=== PATIENT | female | born 1985 | race Two or more races ===

== ENCOUNTER 2023-01-01 20:54 | Inpatient (IN) | payer OTHER ==
[~2023-01-01] VITALS: Ht 157.5 cm; Wt 86.2 kg
[2023-01-01 21:59] LABS: HEMATOCRIT 35.9 % (36.0-45.00); HEMOGLOBIN 12.5 g/dL (12.0-15.00); MEAN CELL VOLUME 87.9 fL (80.00-100.00); MEAN CORPUSCULAR HEMOGLOBIN 30.5 pg (27.00-32.0); MEAN CORPUSCULAR HGB CONC 34.7 g/dl (32.0-36.0); PLATELET COUNT 244 K/uL (150-450); RED BLOOD COUNT 4.08 M/uL (4.00-6.00); RED CELL DISTRIBUTION WIDTH 14.8 % (11.5-14.5)
[2023-01-01 22:01] LABS: PH,URINE 6.5 (5.0-8.0); URINE APPEARANCE Clear; URINE BILIRRUBIN Negative (NEGATIVE); URINE BLOOD Negative; URINE COLOR Yellow; URINE GLUCOSE Negative (NEGATIVE); URINE LEUKOCYTE Trace; URINE NITRATE Negative; URINE PROTEIN Trace (NEGATIVE)
[2023-01-01 22:05] LABS: URINE BACTERIA 139.8 uL (0.0-1933); URINE EPITHELIAL CELLS 8.9 uL (0.0-38.8)
[2023-01-01] MEDS ORDERED: PRENATAL CAPLE1 EAC1 PO (22:14)
[2023-01-01] MEDS ORDERED: ADULT LOW DOSE81 M1 PO (22:14)
[2023-01-01 22:15] LABS: INR < 0.93; PARTIAL THROMBOPLASTIN TIME 26.7 SECONDS (22.0-34.0); PROTHROMBIN TIME 9.3 SECONDS (9.0-11.5)
[2023-01-01 22:19] LABS: ALBUMIN 2.8 gm/dL (3.4-5.0); BILIRUBIN TOTAL 0.23 mg/dL (0.3-1.2); CALCIUM 9.6 mg/dL (8.5-10.1); CREATININE SERUM 0.65 mg/dL (0.55-1.02); GFR 101.47; GLOBULINA 3.4 G/DL (2.4-3.5); POTASSIUM 4.04 mEq/L (3.5-5.1); TOTAL PROTEIN 6.2 gm/dL (6.4-8.2)
[2023-01-02 22:31] LABS: URINE PROT QUANT 24HR 5.8 MG/DL
[2023-01-02 22:33] LABS: URINE PROT QUANT 24 HR 159.5 MG/24HR (42-225)
== END 2023-01-03 11:43 | disposition home or self-care (01) | DRG 833 ==
LOC: OBS/DEL 20:54 → LDR 01-02 21:42
PROVIDERS: ADMIT Specialist; ATTEND Specialist
PROC: 4A1HXCZ Monitoring of Products of Conception, Cardiac Rate, External Approach (ICD-10-PCS; principal; 2023-01-02)
DX: O24.410 Gestational diabetes mellitus in pregnancy, diet controlled (principal); O13.3 Gestational [pregnancy-induced] hypertension without significant proteinuria, third trimester; Z3A.37 37 weeks gestation of pregnancy; Z20.822 Contact with and (suspected) exposure to COVID-19

== ENCOUNTER 2023-01-06 07:45 | Inpatient (IN) | payer OTHER ==
[~2023-01-06] VITALS: Ht 157.5 cm; Wt 85.7 kg
[~2023-01-06 07:45] MED LIST: ADULT LOW DOSE81 M1 PO; PRENATAL CAPLE1 EAC1 PO
[2023-01-06 08:18] LABS: HEMOGLOBIN 12.4 g/dL (12.0-15.00); MEAN CELL VOLUME 89.8 fL (80.00-100.00); MEAN CORPUSCULAR HEMOGLOBIN 29.2 pg (27.00-32.0); MEAN CORPUSCULAR HGB CONC 32.5 g/dl (32.0-36.0); PLATELET COUNT 235 K/uL (150-450); RED BLOOD COUNT 4.23 M/uL (4.00-6.00); RED CELL DISTRIBUTION WIDTH 14.2 % (11.5-14.5)
[2023-01-06 08:21] LABS: URINE APPEARANCE Clear; URINE BILIRRUBIN Negative (NEGATIVE); URINE BLOOD Negative; URINE COLOR Yellow; URINE GLUCOSE Negative (NEGATIVE); URINE LEUKOCYTE Moderate; URINE NITRATE Negative; URINE PROTEIN Negative (NEGATIVE); URINE UROBILINOGEN 0.2 E.U./dl
[2023-01-06 08:39] LABS: INR < 0.93; PARTIAL THROMBOPLASTIN TIME 28.4 SECONDS (22.0-34.0); PROTHROMBIN TIME 9.1 SECONDS (9.0-11.5)
[2023-01-06 08:40] LABS: URINE RBC 0.5 uL (0.0-20.8)
[2023-01-06 08:47] LABS: ALBUMIN 2.8 gm/dL (3.4-5.0); BILIRUBIN TOTAL 0.25 mg/dL (0.3-1.2); CALCIUM 9.1 mg/dL (8.5-10.1); CREATININE SERUM 0.65 mg/dL (0.55-1.02); GFR 101.47; GLOBULINA 3.5 G/DL (2.4-3.5); POTASSIUM 4.1 mEq/L (3.5-5.1); TOTAL PROTEIN 6.3 gm/dL (6.4-8.2)
[2023-01-07 02:46] LABS: ABG pCO2 59.5 mmHg (35-45); BASE EXCESS -18.9 mmol/l; BICARBONATE 13.4 mmol/l (23-25); SaO2 17.6 %; Tco2 15.2 mmol/l
[2023-01-07 02:55] LABS: ABG PH 6.969 (7.35-7.45); ABG PO2 24.5 mmHg (80-100); o2 21 %
== END 2023-01-08 17:22 | disposition home or self-care (01) | DRG 807 ==
LOC: LDR 07:45 → OB/GYN 23:34
PROVIDERS: ADMIT Specialist; ATTEND Specialist
PROC: 10E0XZZ Delivery of Products of Conception, External Approach (ICD-10-PCS; principal; 2023-01-06)
PROC: 0W8NXZZ Division of Female Perineum, External Approach (ICD-10-PCS; 2023-01-06)
PROC: 4A1HXCZ Monitoring of Products of Conception, Cardiac Rate, External Approach (ICD-10-PCS; 2023-01-06)
DX: O80 Encounter for full-term uncomplicated delivery (principal); Z37.0 Single live birth; Z3A.37 37 weeks gestation of pregnancy; Z20.822 Contact with and (suspected) exposure to COVID-19